=== PATIENT | male | born 1975 | race Caucasian/White ===

== ENCOUNTER 2018-08-02 13:08 | Inpatient (IN) | payer OTHER ==
[~2018-08-02] VITALS: Ht 162.6 cm; Wt 74.4 kg
[2018-08-04] MEDS ORDERED: CIPRO500 MG PO (08:11)
[2018-08-04] MEDS ORDERED: ZANTAC300 MG PO (08:12)
[2018-08-04] MEDS ORDERED: ULTRACET PO (08:12)
== END 2018-08-04 11:47 | disposition home or self-care (01) | DRG 343 ==
LOC: ER 13:08 → SEC-K 16:02 → SURH 23:18
PROVIDERS: Surgery
PROC: BW25Y0Z Computerized Tomography (CT Scan) of Chest, Abdomen and Pelvis using Other Contrast, Unenhanced and Enhanced (ICD-10-PCS; 2018-08-02)
PROC: 0DTJ0ZZ Resection of Appendix, Open Approach (ICD-10-PCS; principal; 2018-08-02 19:00)
DX: K35.89 Other acute appendicitis (principal); K80.80 Other cholelithiasis without obstruction